=== PATIENT | female | born 1965 | race Caucasian/White ===

== ENCOUNTER 2017-06-05 08:24 | Outpatient (CLI) | payer OTHER ==
--- NOTE | 2017-06-05 15:06 | MMO ---
BASELINE BILATERAL SCREENING MAMMOGRAM: Date: 06/05/17 COMPARISON: None. HISTORY: Screening mammography. FINDINGS: This patient's mammogram was interpreted with the assistance of computer-aided detection. Scattered fibroglandular densities are present. There is no dominant mass or architectural distortion . No concerning microcalcifications. IMPRESSION: BIRADS 1: Negative Annual screening mammography recommended. POS: [facility]
== END 2017-06-05 08:25 | disposition home or self-care (01) ==
LOC: SCSMAMMO 08:24
PROVIDERS: ATTEND Family Medicine
DX: Z12.31 Encounter for screening mammogram for malignant neoplasm of breast (principal)
CPT/HCPCS: 77067

== ENCOUNTER 2017-07-15 09:15 | Outpatient (CLI) | payer OTHER ==
[2017-07-15] MEDS ORDERED: ISOVUE-370 76%-LOCM 1 ML ONE (14:09)
== END 2017-07-15 09:16 | disposition home or self-care (01) ==
LOC: BICCT 09:15
PROVIDERS: ATTEND Family Medicine
DX: K46.9 Unspecified abdominal hernia without obstruction or gangrene (principal); I25.2 Old myocardial infarction; D64.9 Anemia, unspecified; N93.9 Abnormal uterine and vaginal bleeding, unspecified; K21.9 Gastro-esophageal reflux disease without esophagitis; I50.9 Heart failure, unspecified; M54.5 Low back pain
CPT/HCPCS: 74177

== ENCOUNTER 2017-10-07 14:30 | Observation (INO) | payer OTHER ==
[2017-10-07 15:00] LABS: #Basophils 0.1 thou/uL (0.0-0.2); #Eosinphils 0.2 thou/uL (0.0-0.7); #Lymphocytes 1.2 thou/uL (1.20-3.40); #Monocytes 0.4 thou/uL (0.11-0.59); #Neutrophils 3.7 thou/uL (1.40-6.50); %Basophils 1.1 % (0.0-1.0); %Eosinophils 3.4 % (0.0-10.0); %Lymphocytes 21.5 % (21.0-51.0); %Monocytes 7.4 % (0.0-10.0); %Neutrophils 66.6 % (42.0-75.0); Hemoglobin 14.6 g/dL (12.0-16.0); Mean Corpuscular HGB CONC 34.7 g/dL (32.0-36.0); Mean Corpuscular Hemoglobin 30.7 pg (27.0-31.0); Mean Corpuscular Volume 88.4 fL (78.0-98.0); Mean Platelet Volume 8.1 fL (7.4-10.4); Platelet Count 207 thou/uL (130-400); RBC Distribution Width 12.9 % (11.5-14.5); Red Blood Cell (RBC) Count 4.76 mill/uL (4.20-5.40); White Blood Cell (WBC) Count 5.6 thou/uL (4.8-10.8)
[2017-10-07 15:23] LABS: ALT (SGPT) 12 U/L (8-55); AST (SGOT) 12 U/L (5-34); Albumin 4.2 g/dL (3.5-5.0); Alkaline Phosphatase 75 U/L (40-150); Anion Gap 11 mmol/L (10-20); BUN (Urea Nitrogen) 17 mg/dL (9.8-20.1); Bilirubin, Total 0.6 mg/dL (0.2-1.2); CK (CPK) 41 U/L (29-168); Calc. Creatinine Clearance 0 mL/min (70-130); Calcium 9.4 mg/dL (7.8-10.44); Carbon Dioxide 25 mmol/L (22-29); Chloride 108 mmol/L (98-107); Estimated GFR-MDRD 86; Globulin 2.4 g/dL (2.4-3.5); Glucose 119 mg/dL (70-105); Lipase 20 U/L (8-78); Potassium 4.1 mmol/L (3.5-5.1); Protein, Total 6.6 g/dL (6.0-8.3); Sodium 140 mmol/L (136-145)
[2017-10-07 15:27] LABS: CKMB 1.1 ng/mL (0-6.6); Troponin I 0.015 ng/mL (< 0.028)
--- NOTE | 2017-10-07 15:59 | RAD ---
PORTABLE AP CHEST: Date: 10/07/17 HISTORY: Chest pain. COMPARISON: None available. FINDINGS: Cardiac silhouette is magnified by projection. Pulmonary vasculature is within normal limits. Lungs a re clear. Osseous structures are intact. IMPRESSION: No acute cardiopulmonary process. POS: [facility]
[2017-10-07] MEDS ORDERED: Acetaminophen 500 MG TAB ONE (16:28)
[2017-10-07 18:32] LABS: Troponin I Less than 0.010 ng/mL (< 0.028)
[2017-10-07] MEDS ORDERED: Enoxaparin Sodium 40 MG/0.4 ML SYRINGE SC SCH (18:48)
[2017-10-07] MEDS ORDERED: Acetaminophen 325 MG TAB PO PRN (18:48)
[2017-10-07] MEDS ORDERED: HYDROcodone/Acetaminophen 5/325 mg Tablet PO PRN (18:48)
[2017-10-07] MEDS ORDERED: Nitroglycerin 2% Ointment 1 INCH/1 GM Packet TOP SCH (19:00)
[2017-10-07] MEDS ORDERED: Nitroglycerin 2% Ointment 1 INCH/1 GM Packet ONE (19:03)
[2017-10-07] MEDS ORDERED: Enoxaparin Sodium 40 MG/0.4 ML SYRINGE ONE (19:03)
[2017-10-07 19:44] LABS: CKMB 1.2 ng/mL (0-6.6)
--- NOTE | 2017-10-07 21:07 | HP ---
PRIMARY CARE PHYSICIAN: The nursing home [facility]. PRIMARY FILTER PRESS OPERATOR: Dr. Marco Antonio Bennett. DATE OF ADMISSION: 10/07/2017 TIME OF SERVICE: 1730 hours. CHIEF COMPLAINT: Chest pain. HISTORY OF PRESENT ILLNESS: Ms. Meeks is a 52-year-old white female with history of coronary artery disease, currently a prisoner in [place]. About 13:30 today, she developed acute onset of left-s ided chest pain. She describes this as a sharp and nonradiating, that lasted few minutes. Rated the pain as 7/10, was nonpositional. She had no nausea and vomiting. No syncope or presyncope. No anx iety. No diarrhea, constipation or diaphoresis. It went away when she got some sublingual nitroglyc rah, has not recurred. She has had some chronic edema in the lower extremities, that is minimal and that had not been worse than her baseline. She does have a history of coronary artery disease, had a heart catheterization some 4 or 5 years ago that had a small vessel disease that to be medically ma naged. She saw Dr. Bennett about a month ago and had an echocardiogram done at that time, which we do not h ave the result, she also had an exercise stress test reportedly had some area of reversible ischemia area. She has no other current complaints. She is currently pain free. PAST MEDICAL HISTORY: 1. Coronary artery disease as above. 2. Congestive heart failure. Last echo six weeks ago with Dr. Bennett's clinic, but I do not have the records. I do not know if this is systolic or diastolic. 3. Gastroesophageal reflux disease. 4. Left inguinal hernia. PAST SURGICAL HISTORY: 1. PTCA, last one was about 4 or 5 years ago in [place]. 2. Exercise stress test about a month and a half ago with Dr. Bennett's clinic. 3. Cholecystectomy in 2017. 4. ORIF of the right arm fracture 7-8 years ago. 5. Bilateral tubal ligation at age 29. 6. Left inguinal herniorrhaphy in 2014. HOME MEDICATIONS: 1. Metoprolol succinate 25 mg daily with iron sulfate daily. 2. Prilosec daily. 3. Lipitor initially, but has been off it for some time. ALLERGIES: LIPITOR, though she does not recall any myalgias, lab elevations or kidney problems. FAMILY HISTORY: Significant for coronary artery disease and CHF. SOCIAL HISTORY: Significant for past tobacco some [id number] history. She smoked about 1 pack a d ay for 30 years and quit about 2 years ago. She has currently been incarcerated here since 02/2017. REVIEW OF SYSTEMS: All systems reviewed and negative except as stated as per HPI. PHYSICAL EXAMINATION: VITAL SIGNS: Temperature 98.6, pulse 71, blood pressure 109/76, respiratory rate 10, satting 96% on room air. GENERAL: She is awake. She is alert. She is oriented x3, well-developed, well-nourished, obese whi te female, appears in no distress. HEENT: Normocephalic, atraumatic. Pupils are equal, round, react to light bilaterally. Mucous memb ranes are moist. No visible lesions. No thrush. NECK: Supple. She has no lymphadenopathy, JVD or thyromegaly. She has normal carotid upstrokes wit hout bruits. LUNGS: Clear. She has good air movement. Symmetrical chest excursion. No wheezes, no rales, no rh onchi. CARDIOVASCULAR: Normal S1, S2. No S3 or S4. She does have a faint 2/[address] murmur best he[address] rd at the apex. ABDOMEN: Obese. It is nontender, nondistended. She has no masses, no organomegaly. No rebound, ri gidity or guarding. She has normoactive bowel sounds. I cannot palpate internal organs. EXTREMITIES: Show no cyanosis or clubbing with trace lower extremity edema. She has 2+ dorsalis ped is and posterior tibial pulses. SKIN: Warm, moist and well perfused. She has no other rashes or lesions. MUSCULOSKELETAL: Normal to inspection. Large joints appear normal. She has no evidence of palpable effusions or joint inflammation. NEUROLOGIC: Cranial nerves II-XII are grossly intact without any focal neurologic deficits. She bridges s have a large inguinal hernia present to the left groin area. It is nontender. LABORATORY DATA AND IMAGING: Sodium 140, potassium 4.1, chloride 108, bicarbonate 25, BUN 17, creati nine 0.7, glucose of 109, and calcium 9.1. Liver function completely within normal limits. CBC showed a white count of 5.6, hemoglobin is 14.6, hematocrit is 42.1, platelet count is 207,000. Chest x-ray is normal. EKG showed a normal R-wave progression. She has no Q-waves. She has a flattening of the T waves in the anterior lateral leads normal. She did have PVC seen. ASSESSMENT AND PLAN: 1. Acute coronary syndrome, moderate risk. She does have a history of coronary artery disease as it was previously inoperable. We will get serial cardiac biomarkers and ask Cardiology to see. I have not ordered an echocardiogram or any stress testing. She does have a stress test and echo done rece ntly. Follow up on Cardiology recommendation regarding how they would like to proceed. In the meant boy, we will place her on continuous oxygen, nitro paste, metoprolol tartrate b.i.d., aspirin and we will trend out her biomarkers. 2. We will check a fasting lipid profile in the morning. We will hold up the Lipitor to get that ba ck. 3. History of congestive heart failure, unknown. We will request records from Dr. Bennett's office . 4. Gastroesophageal reflux disease. We will continue on a PPI with Protonix daily. 5. Left inguinal hernia, asymptomatic. She is currently getting her heart workup done, so she can g et that repaired. We will continue to watch her overnight in observation. We will monitor on telemetry and make furthe r recommendations once we have the results back.
[2017-10-07 21:50] LABS: Troponin I Less than 0.010 ng/mL (< 0.028)
[2017-10-07] MEDS ORDERED: Acetaminophen 325 MG TAB ONE (22:34)
[2017-10-07 23:33] VITALS: BMI 36.3
[2017-10-07] MEDS: Metoprolol Tartrate 25 MG TAB PO SCH (23:49)
[2017-10-08 02:36] LABS: #Eosinphils 0.2 thou/uL (0.0-0.7); #Lymphocytes 1.5 thou/uL (1.20-3.40); #Monocytes 0.4 thou/uL (0.11-0.59); #Neutrophils 2.9 thou/uL (1.40-6.50); %Basophils 0.9 % (0.0-1.0); %Eosinophils 4.1 % (0.0-10.0); %Lymphocytes 30.5 % (21.0-51.0); %Neutrophils 56.5 % (42.0-75.0); Mean Corpuscular HGB CONC 34.2 g/dL (32.0-36.0); Mean Corpuscular Hemoglobin 30.9 pg (27.0-31.0); Mean Corpuscular Volume 90.5 fL (78.0-98.0); Mean Platelet Volume 8.1 fL (7.4-10.4); Platelet Count 188 thou/uL (130-400); RBC Distribution Width 13.2 % (11.5-14.5); Red Blood Cell (RBC) Count 4.54 mill/uL (4.20-5.40); White Blood Cell (WBC) Count 5.1 thou/uL (4.8-10.8)
[2017-10-08 03:04] LABS: Anion Gap 11 mmol/L (10-20); BUN (Urea Nitrogen) 16 mg/dL (9.8-20.1); CK (CPK) 46 U/L (29-168); Calc. Creatinine Clearance 159 mL/min (70-130); Carbon Dioxide 25 mmol/L (22-29); Cardiac Risk 5.2 (Less than 4.5); Chloride 109 mmol/L (98-107); Cholesterol 172 mg/dl (< 200 Desired); Estimated GFR-MDRD Greater than 90; Glucose 94 mg/dL (70-105); HDL Cholesterol 33 mg/dL (>60 Neg Risk); LDL Cholesterol, Calculated 116 mg/dL; Magnesium 2.1 mg/dL (1.6-2.6); Potassium 4.1 mmol/L (3.5-5.1); Sodium 141 mmol/L (136-145); Triglycerides 113 mg/dL (Less than 150)
[2017-10-08 03:06] LABS: CKMB 1.1 ng/mL (0-6.6); Troponin I Less than 0.010 ng/mL (< 0.028)
[2017-10-08] MEDS ORDERED: Nitroglycerin 2% Ointment 1 INCH/1 GM Packet TOP SCH (06:00)
[2017-10-08 08:14] VITALS: BP 104/65; TEMP 98
[2017-10-08] MEDS: Metoprolol Tartrate 25 MG TAB PO SCH (08:28)
[2017-10-08] MEDS ORDERED: Aspirin 325 mg Enteric Coated Tablet PO SCH (09:00)
--- NOTE | 2017-10-12 11:29 | EKG ---
Test Reason : CP Blood Pressure : / mmHG Vent. Rate : 070 BPM Atrial Rate : 070 BPM P-R Int : 130 ms QRS Dur : 076 ms QT Int : 356 ms P-R-T Axes : 029 006 -23 degrees QTc Int : 384 ms Sinus rhythm with occasional Premature ventricular complexes Nonspecific T wave abnormality Abnormal ECG Confirmed by CAMILLA ALVAREZ DO ([id number]), market editor LEO HASSAN ([id number]) on 10/12/2017 11:29:21 AM Referred By: Confirmed By:CAMILLA ALVAREZ DO
== END 2017-10-08 10:36 ==
LOC: ERS 14:30 → ERHOLD 16:33 → 2SW 23:20
PROVIDERS: ADMIT Internal Medicine Infectious Disease; ATTEND Internal Medicine Infectious Disease
DX: R07.9 Chest pain, unspecified (principal); I25.10 Atherosclerotic heart disease of native coronary artery without angina pectoris; I50.9 Heart failure, unspecified; K21.9 Gastro-esophageal reflux disease without esophagitis; K40.90 Unilateral inguinal hernia, without obstruction or gangrene, not specified as recurrent; Z87.891 Personal history of nicotine dependence; Z79.899 Other long term (current) drug therapy
CPT/HCPCS: 36415; 71045; 80048; 80053; 80061; 82550; 82553; 83690; 83735; 84484; 85025; 93005; 96372; G0378; J1650

== ENCOUNTER 2018-03-25 11:30 | Observation (INO) | payer OTHER ==
[2018-04-11 11:55] VITALS: BMI 37.3
[2018-04-14] MEDS ORDERED: Ketorolac Tromethamine 30 MG/ML VIAL ONE (10:05)
[2018-04-14] MEDS ORDERED: CEFAZOLIN 2 GM/50 ML BAG ONE (10:05)
[2018-04-14 10:44] LABS: #Eosinphils 0.4 thou/uL (0.0-0.7); #Lymphocytes 0.9 thou/uL (1.20-3.40); #Monocytes 0.4 thou/uL (0.11-0.59); #Neutrophils 3.6 thou/uL (1.40-6.50); %Basophils 0.6 % (0.0-1.0); %Lymphocytes 17.5 % (21.0-51.0); %Monocytes 7.2 % (0.0-10.0); %Neutrophils 67.6 % (42.0-75.0); Hemoglobin 13.8 g/dL (12.0-16.0); Mean Corpuscular Hemoglobin 28.3 pg (27.0-31.0); Mean Corpuscular Volume 88.6 fL (78.0-98.0); Mean Platelet Volume 8.2 fL (7.4-10.4); Platelet Count 245 thou/uL (130-400); RBC Distribution Width 12.5 % (11.5-14.5); Red Blood Cell (RBC) Count 4.86 mill/uL (4.20-5.40); White Blood Cell (WBC) Count 5.3 thou/uL (4.8-10.8)
[2018-04-14 11:00] LABS: Anion Gap 12 mmol/L (10-20); BUN (Urea Nitrogen) 17 mg/dL (9.8-20.1); Calc. Creatinine Clearance 164 mL/min (70-130); Calcium 9.5 mg/dL (7.8-10.44); Carbon Dioxide 25 mmol/L (22-29); Chloride 107 mmol/L (98-107); Estimated GFR-MDRD Greater than 90; Glucose 102 mg/dL (70-105); Potassium 3.8 mmol/L (3.5-5.1); Sodium 140 mmol/L (136-145)
[2018-04-14] MEDS ORDERED: Bupivacaine HCl 0.25%/Epi 0.0005/PF 10 ML VIAL FS ONE (11:44)
[2018-04-14] MEDS ORDERED: Fentanyl 100 MCG/2 ML VIAL ONE ×3 (12:09→15:06)
[2018-04-14] MEDS ORDERED: PHENYLEPHRINE-NS 100 MCG/ML 10 ML SYRINGE ONE ×2 (13:03→14:12)
[2018-04-14] MEDS ORDERED: Promethazine HCl 25 MG/ML VIAL IM PRN ×2 (13:27→18:42)
[2018-04-14] MEDS ORDERED: Meperidine HCl/PF 25 MG/ML VIAL SLOW IVP PRN (13:27)
[2018-04-14] MEDS ORDERED: Ketorolac Tromethamine 30 MG/ML VIAL IVP PRN (13:27)
[2018-04-14] MEDS ORDERED: HYDROmorphone 2 MG/ML VIAL SLOW IVP PRN (13:27)
[2018-04-14] MEDS ORDERED: Ondansetron HCl/PF 4 MG/2 ML Vial IVP PRN (13:27)
[2018-04-14] MEDS ORDERED: Promethazine HCl 25 MG/ML VIAL SLOW IVP PRN (13:27)
[2018-04-14] MEDS ORDERED: Dexamethasone 20 MG/5 ML VIAL ONE (14:12)
[2018-04-14] MEDS ORDERED: ePHEDrine/0.9% NaCl/PF SYRINGE 50 mg/10 ml ONE (14:12)
[2018-04-14] MEDS ORDERED: Glycopyrrolate 0.2 MG/ML 5 ML SYRINGE ONE (14:12)
[2018-04-14] MEDS ORDERED: Lidocaine 1% PF 5 ML VIAL ONE (14:12)
[2018-04-14] MEDS ORDERED: Succinylcholine Chloride 20 MG/ML 10 ml SYRINGE FS ONE (14:12)
[2018-04-14] MEDS ORDERED: Rocuronium Bromide 10 MG/ML (10ML VIAL) ONE (14:12)
[2018-04-14] MEDS ORDERED: PROPOFOL 200 MG/20 ML VIAL ONE (14:12)
[2018-04-14] MEDS ORDERED: Ondansetron PF 4 MG/2 ML Vial ONE (14:12)
[2018-04-14] MEDS ORDERED: HYDROmorphone 2 MG/ML VIAL ONE (15:33)
[2018-04-14] MEDS ORDERED: Ondansetron PF 4 MG/2 ML Vial IVP PRN (18:42)
[2018-04-14] MEDS ORDERED: Dextrose 5% in Water 1,000 ML IV PRN (18:42)
[2018-04-14] MEDS ORDERED: Morphine 4 MG/ML VIAL SLOW IVP PRN ×2 (18:42)
[2018-04-14] MEDS ORDERED: Dextrose 50% Abboject 50 ML SYRINGE SLOW IVP PRN (18:42)
[2018-04-14] MEDS ORDERED: HYDROcodone/Acetaminophen 7.5/325 mg Tablet PO PRN (18:42)
[2018-04-14] MEDS: D5 1/2 NS w/20 mEq KCL 1,000 ML IV SCH (20:17)
--- NOTE | 2018-04-14 22:19 | OP ---
DATE OF PROCEDURE: 04/14/2018 PREOPERATIVE DIAGNOSIS: Large recurrent left lower quadrant ventral hernia. POSTOPERATIVE DIAGNOSIS: Large recurrent left lower quadrant ventral hernia. OPERATIONS PERFORMED: Complex repair (taking about 2 hours total time) of a 10 cm left lower quadrant incisional hernia with an onlay mesh patch, complex closure with placement of drain, excision of redundant overlying skin, closure in multiple layers, and dog-ear corrections at each end of the incision. ANESTHESIA: General endotracheal per Pretty Crespo CRNA. INDICATIONS: The patient is a 53-year-old morbidly obese white female. She apparently had an incarcerated or strangulated hernia in her left lower quadrant in about 2013. This was repaired in [place]. She does not know if mesh was used or not. Apparently, the hernia recurred shortly after the surgery. She is currently incarcerated in the [facility]. Almost a year ago, a CT scan was obtained showing a large hernia defect in the left lower abdomen with bowel protruding through this. She required cardiac clearance, which was obtained last October and for a variety of reasons, it took her a while to come and see me and get the operation scheduled. 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 I recommended against this secondary to potential mesh contamination. She is therefore taken to the operating room at this time for repair of her recurrent left lower quadrant hernia with mesh. DESCRIPTION OF OPERATION: Informed consent was obtained. The patient was taken to the operating room where general endotracheal anesthesia was obtained with the patient in supine position. All hair was trimmed and the left lower abdomen was prepped with ChloraPrep and draped in sterile fashion after Hodgson catheter had been placed. By palpation, it seemed that the hernia defect extended from the pubic tubercle and perhaps a little medial to the pubic tubercle and laterally for approximately 10 cm. An oblique left inguinal incision was created overlying this area. Dissection was carried through skin and subcutaneous tissue. The hernia sac was encountered almost immediately below the skin. This was dissected circumferentially down to the abdominal wall. I then opened the hernia sac and found that there were no bowel adhesions to the hernia. There was, however, extensive bowel in the area that had to be reduced in order to allow continued dissection. I eventually completely resected the hernia sac down to the edges of the intact and viable muscle. Due to scarring from the prior surgery and the essentially blown out full-thickness muscle loss in this area, it was difficult to identify discrete muscle layers. I decided to try to repair the hernia using full-thickness closure. I performed a preperitoneal dissection and reflected all preperitoneal tissue inferiorly. I closed the peritoneum over the bowel for no other reason than to keep it out of the operative site. This closure was with a 3-0 Vicryl. There did not appear to be appropriate space for placement of submuscular mesh, especially inferiorly where it was difficult to discern the preperitoneal anatomy. The fascial defect was closed in a transverse fashion using a series of interrupted sutures of #1 Prolene placed in an interrupted [id number] fashion. I was able to close all tissue layers primarily in this fashion. I then obtained the mesh patch from the prefix patch container. The plug was not used, but the mesh patch was placed over the suture line. The suture line at this level was about 12 cm in length and the mesh patch was about 14 cm in length. I have placed a series of interrupted sutures of #1 Prolene with series of interrupted U-stitches, securing the mesh snugly over the fascial repair. Several sutures were then placed between the center of the mesh and the underlying fascia repair. The wound was irrigated and all irrigant was aspirated. A #19 round fluted drain was brought into the wound from superiorly and laterally. It was secured externally with 3-0 nylon suture. The deep layers of the wound were closed using a running suture of 3-0 Vicryl. I then trimmed away of redundant skin and subcutaneous fatty tissue and approximated the skin edges with another layer of running 3-0 Vicryl. Finally, the skin edges were closed with skin maya. Dry gauze dressing was placed with the tape. There were no complications. Blood loss was negligible. The patient tolerated the procedure well and was taken to recovery room in stable condition. Job ID: [id number]
[2018-04-15] MEDS: HYDROcodone/Acetaminophen 7.5/325 mg Tablet PO PRN ×2 (01:57→11:29)
[2018-04-15] MEDS: D5 1/2 NS w/20 mEq KCL 1,000 ML IV SCH ×2 (05:49→18:53)
[2018-04-15 07:52] LABS: #Lymphocytes 0.7 thou/uL (1.20-3.40); #Monocytes 0.6 thou/uL (0.11-0.59); #Neutrophils 10.4 thou/uL (1.40-6.50); %Basophils 0.2 % (0.0-1.0); %Eosinophils 0.2 % (0.0-10.0); %Lymphocytes 6.3 % (21.0-51.0); %Monocytes 5.3 % (0.0-10.0); %Neutrophils 88.1 % (42.0-75.0); Hemoglobin 12.5 g/dL (12.0-16.0); Mean Corpuscular Hemoglobin 28.8 pg (27.0-31.0); Mean Corpuscular Volume 89.9 fL (78.0-98.0); Mean Platelet Volume 8.2 fL (7.4-10.4); Platelet Count 239 thou/uL (130-400); RBC Distribution Width 12.7 % (11.5-14.5); Red Blood Cell (RBC) Count 4.36 mill/uL (4.20-5.40); White Blood Cell (WBC) Count 11.8 thou/uL (4.8-10.8)
[2018-04-15] MEDS ORDERED: Enoxaparin Sodium 40 MG/0.4 ML SYRINGE SC SCH (09:00)
[2018-04-15] MEDS: Acetaminophen 1,000 MG in Premix Bag 1 BAG IVPB SCH ×3 (17:43→18:27)
[2018-04-15] MEDS: Ketorolac Tromethamine 30 MG/ML VIAL IVP SCH (18:50)
[2018-04-16] MEDS: Ketorolac Tromethamine 30 MG/ML VIAL IVP SCH ×2 (00:10→05:27)
[2018-04-16] MEDS ORDERED: Spironolactone 25 MG TAB PO SCH (08:00)
[2018-04-16 08:02] VITALS: BP 135/77; TEMP 98
[2018-04-16] MEDS ORDERED: Aspirin 325 mg Enteric Coated Tablet PO SCH (09:00)
[2018-04-16] MEDS ORDERED: Metoprolol Tartrate 25 MG TAB PO SCH (09:00)
[2018-04-16] MEDS ORDERED: Docusate 100 MG CAP PO SCH (09:00)
--- NOTE | 2018-04-16 15:01 | DIS ---
DATE OF ADMISSION: 04/14/2018 DATE OF DISCHARGE: 04/16/2018 ADMISSION DIAGNOSIS: Large left lower quadrant recurrent ventral hernia. DISCHARGE DIAGNOSIS: Large left lower quadrant recurrent ventral hernia. OPERATION PERFORMED: Open repair of large left lower quadrant ventral hernia with mesh and subcutaneous drain placement. ADMISSION HISTORY: The patient is a 53-year-old morbidly obese white female. She had a left inguinal hernia repaired emergently 4 years ago. I do not believe mesh was utilized at that time. She had immediate recurrence of this and presents this time for repair of a large left lower quadrant hernia. HOSPITAL COURSE: The patient underwent surgery on the day of admission. The surgery was challenging, but uncomplicated. She had about a 10 cm hernia defect. This was repaired with an onlay mesh patch. A drain was placed overlying the mesh patch as well. She has recuperated appropriately. She was kept until postoperative day #2 for pain control. She feels much better and is tolerating her diet and is ambulating. Her vital signs and laboratory studies have been essentially normal. She is stable for discharge at this time. I will arrange for her to come back to my office next week to have her drain removed and her maya will be ready for removal in 2 weeks. She will see one of my associates in my absence next week. She will be given a prescription for Laporte for discharge. Job ID: [id number]
== END 2018-04-16 12:10 ==
LOC: EDSTATUS 15:00 → INTOOBSV 04-14 09:14 → SURG A 04-14 09:14 → EEVIPCON 04-14 09:14 → 3SE 04-14 18:38
PROVIDERS: ADMIT Obstetrics & Gynecology; ATTEND Specialist
PROC: 0WUF0JZ Supplement Abdominal Wall with Synthetic Substitute, Open Approach (ICD-10-PCS; principal; 2018-04-14)
DX: K43.2 Incisional hernia without obstruction or gangrene (principal); I25.10 Atherosclerotic heart disease of native coronary artery without angina pectoris; E66.01 Morbid (severe) obesity due to excess calories; Z68.36 Body mass index [BMI] 36.0-36.9, adult; Z79.02 Long term (current) use of antithrombotics/antiplatelets; Z79.82 Long term (current) use of aspirin; Z79.899 Other long term (current) drug therapy; Z88.8 Allergy status to other drugs, medicaments and biological substances; Z98.890 Other specified postprocedural states
CPT/HCPCS: 36415; 80048; 85025; 96361; 96372; 96374; 96376; C1781; G0378; J0131; J1100; J1170; J1650; J1885; J2001; J2405; J2704; J3010

== ENCOUNTER 2018-05-08 10:12 | Emergency (ER) | payer OTHER ==
[2018-05-08] MEDS ORDERED: Meclizine HCl 25 MG TAB ONE (11:02)
[2018-05-08 11:15] LABS: #Basophils 0.1 thou/uL (0.0-0.2); #Eosinphils 0.3 thou/uL (0.0-0.7); #Lymphocytes 0.9 thou/uL (1.20-3.40); #Monocytes 0.3 thou/uL (0.11-0.59); #Neutrophils 5.2 thou/uL (1.40-6.50); %Basophils 1.3 % (0.0-1.0); %Eosinophils 3.8 % (0.0-10.0); %Lymphocytes 12.6 % (21.0-51.0); %Monocytes 4.6 % (0.0-10.0); %Neutrophils 77.8 % (42.0-75.0); Hemoglobin 13.7 g/dL (12.0-16.0); Mean Corpuscular HGB CONC 32.3 g/dL (32.0-36.0); Mean Corpuscular Hemoglobin 29.4 pg (27.0-31.0); Mean Corpuscular Volume 91.1 fL (78.0-98.0); Mean Platelet Volume 7.7 fL (7.4-10.4); Platelet Count 264 thou/uL (130-400); RBC Distribution Width 12.8 % (11.5-14.5); Red Blood Cell (RBC) Count 4.65 mill/uL (4.20-5.40); White Blood Cell (WBC) Count 6.7 thou/uL (4.8-10.8)
[2018-05-08 11:47] LABS: ALT (SGPT) 11 U/L (8-55); AST (SGOT) 13 U/L (5-34); Albumin 4.1 g/dL (3.5-5.0); Alkaline Phosphatase 93 U/L (40-150); Anion Gap 13 mmol/L (10-20); BUN (Urea Nitrogen) 12 mg/dL (9.8-20.1); Bilirubin, Total 0.5 mg/dL (0.2-1.2); Calc. Creatinine Clearance 0 mL/min (70-130); Calcium 9.4 mg/dL (7.8-10.44); Carbon Dioxide 23 mmol/L (22-29); Chloride 107 mmol/L (98-107); Estimated GFR-MDRD 86; Globulin 2.4 g/dL (2.4-3.5); Glucose 109 mg/dL (70-105); Potassium 4.5 mmol/L (3.5-5.1); Protein, Total 6.5 g/dL (6.0-8.3); Sodium 138 mmol/L (136-145)
== END 2018-05-08 13:20 | disposition home or self-care (01) ==
LOC: ERS 10:12
DX: H81.10 Benign paroxysmal vertigo, unspecified ear (principal); K21.9 Gastro-esophageal reflux disease without esophagitis; I25.2 Old myocardial infarction; I50.9 Heart failure, unspecified; Z79.899 Other long term (current) drug therapy; Z79.82 Long term (current) use of aspirin
CPT/HCPCS: 36415; 80053; 85025; 93005